=== PATIENT | female | born 1930 | race Caucasian/White ===

== ENCOUNTER 2016-05-16 08:39 | Outpatient (CLI) | payer OTHER ==
[2014-11-30 14:30] VITALS: BP 147/66
== END 2016-05-16 08:49 ==
LOC: LAB 08:39
PROVIDERS: ATTEND Family Medicine
DX: Z51.81 Encounter for therapeutic drug level monitoring (principal); Z79.01 Long term (current) use of anticoagulants; I82.409 Acute embolism and thrombosis of unspecified deep veins of unspecified lower extremity
CPT/HCPCS: 36415; 85610

== ENCOUNTER 2016-06-06 07:54 | Outpatient (CLI) | payer OTHER ==
[2014-11-30 14:30] VITALS: BP 147/66
== END 2016-06-06 07:55 ==
LOC: LAB 07:54
PROVIDERS: ATTEND Family Medicine
DX: Z51.81 Encounter for therapeutic drug level monitoring (principal); Z79.01 Long term (current) use of anticoagulants; I82.409 Acute embolism and thrombosis of unspecified deep veins of unspecified lower extremity
CPT/HCPCS: 36415; 85610

== ENCOUNTER 2016-07-04 08:37 | Outpatient (CLI) | payer OTHER ==
[2014-11-30 14:30] VITALS: BP 147/66
== END 2016-07-04 08:40 ==
LOC: LAB 08:37
PROVIDERS: ATTEND Family Medicine
DX: Z51.81 Encounter for therapeutic drug level monitoring (principal); Z79.01 Long term (current) use of anticoagulants; I82.409 Acute embolism and thrombosis of unspecified deep veins of unspecified lower extremity
CPT/HCPCS: 36415; 85610

== ENCOUNTER 2016-08-01 07:25 | Outpatient (CLI) | payer OTHER ==
[2014-11-30 14:30] VITALS: BP 147/66
== END 2016-08-01 07:26 ==
LOC: LAB 07:25
PROVIDERS: ATTEND Family Medicine
DX: Z51.81 Encounter for therapeutic drug level monitoring (principal); Z79.01 Long term (current) use of anticoagulants; I82.409 Acute embolism and thrombosis of unspecified deep veins of unspecified lower extremity
CPT/HCPCS: 36415; 85610

== ENCOUNTER 2016-08-29 08:07 | Outpatient (CLI) | payer OTHER ==
[2014-11-30 14:30] VITALS: BP 147/66
== END 2016-08-29 08:09 ==
LOC: LAB 08:07
PROVIDERS: ATTEND Family Medicine
DX: I82.409 Acute embolism and thrombosis of unspecified deep veins of unspecified lower extremity (principal)
CPT/HCPCS: 36415; 85610

== ENCOUNTER 2016-10-03 07:14 | Outpatient (CLI) | payer OTHER ==
[2014-11-30 14:30] VITALS: BP 147/66
== END 2016-10-03 07:15 ==
LOC: LAB 07:14
PROVIDERS: ATTEND Family Medicine
DX: I82.409 Acute embolism and thrombosis of unspecified deep veins of unspecified lower extremity (principal)
CPT/HCPCS: 36415; 85610

== ENCOUNTER 2016-11-01 09:43 | Outpatient (CLI) | payer OTHER ==
[2014-11-30 14:30] VITALS: BP 147/66
[2016-11-01 10:39] LABS: eGFR (African) > 60; eGFR (Non-African) > 60
== END 2016-11-01 09:44 ==
LOC: LAB 09:43
PROVIDERS: ATTEND Family Medicine
DX: E78.5 Hyperlipidemia, unspecified (principal); I10 Essential (primary) hypertension; E03.9 Hypothyroidism, unspecified
CPT/HCPCS: 36415; 80053; 80061; 84443

== ENCOUNTER 2016-12-05 08:42 | Outpatient (CLI) | payer OTHER ==
[2014-11-30 14:30] VITALS: BP 147/66
== END 2016-12-05 10:42 ==
LOC: LAB 08:42
PROVIDERS: ATTEND Family Medicine
DX: I82.409 Acute embolism and thrombosis of unspecified deep veins of unspecified lower extremity (principal)
CPT/HCPCS: 36415; 85610

== ENCOUNTER 2017-01-09 08:10 | Outpatient (CLI) | payer OTHER ==
[2014-11-30 14:30] VITALS: BP 147/66
== END 2017-01-09 08:11 ==
LOC: LAB 08:10
PROVIDERS: ATTEND Family Medicine
DX: I26.99 Other pulmonary embolism without acute cor pulmonale (principal)
CPT/HCPCS: 36415; 85610

== ENCOUNTER 2017-02-06 08:21 | Outpatient (CLI) | payer OTHER ==
[2014-11-30 14:30] VITALS: BP 147/66
== END 2017-02-06 08:22 ==
LOC: LAB 08:21
PROVIDERS: ATTEND Family Medicine
DX: I26.99 Other pulmonary embolism without acute cor pulmonale (principal)
CPT/HCPCS: 36415; 85610

== ENCOUNTER 2017-03-06 07:20 | Outpatient (CLI) | payer OTHER ==
[2014-11-30 14:30] VITALS: BP 147/66
== END 2017-03-06 08:24 ==
LOC: LAB 07:20
PROVIDERS: ATTEND Family Medicine
DX: I26.99 Other pulmonary embolism without acute cor pulmonale (principal)
CPT/HCPCS: 36415; 85610

== ENCOUNTER 2017-04-03 07:20 | Outpatient (CLI) | payer OTHER ==
[2014-11-30 14:30] VITALS: BP 147/66
== END 2017-04-03 10:40 ==
LOC: LAB 07:20
PROVIDERS: ATTEND Family Medicine
DX: I26.99 Other pulmonary embolism without acute cor pulmonale (principal)
CPT/HCPCS: 36415; 85610

== ENCOUNTER 2017-05-01 07:24 | Outpatient (CLI) | payer OTHER ==
[2014-11-30 14:30] VITALS: BP 147/66
== END 2017-05-01 07:25 ==
LOC: LAB 07:24
PROVIDERS: ATTEND Family Medicine
DX: I26.99 Other pulmonary embolism without acute cor pulmonale (principal)
CPT/HCPCS: 36415; 85610

== ENCOUNTER 2017-05-28 07:35 | Outpatient (CLI) | payer OTHER ==
[2014-11-30 14:30] VITALS: BP 147/66
== END 2017-05-28 07:36 ==
LOC: LAB 07:35
PROVIDERS: ATTEND Family Medicine
DX: I26.99 Other pulmonary embolism without acute cor pulmonale (principal)
CPT/HCPCS: 36415; 85610

== ENCOUNTER 2017-06-26 07:10 | Outpatient (CLI) | payer OTHER ==
[2014-11-30 14:30] VITALS: BP 147/66
== END 2017-06-26 07:20 ==
LOC: LAB 07:10
PROVIDERS: ATTEND Family Medicine
DX: I26.99 Other pulmonary embolism without acute cor pulmonale (principal)
CPT/HCPCS: 36415; 85610

== ENCOUNTER 2017-07-10 07:20 | Outpatient (CLI) | payer OTHER ==
[2014-11-30 14:30] VITALS: BP 147/66
== END 2017-07-10 07:21 ==
LOC: LAB 07:20
PROVIDERS: ATTEND Family Medicine
DX: I26.99 Other pulmonary embolism without acute cor pulmonale (principal)
CPT/HCPCS: 36415; 85610

== ENCOUNTER 2017-07-24 07:20 | Outpatient (CLI) | payer OTHER ==
[2014-11-30 14:30] VITALS: BP 147/66
== END 2017-07-24 07:22 ==
LOC: LAB 07:20
PROVIDERS: ATTEND Family Medicine
DX: I26.99 Other pulmonary embolism without acute cor pulmonale (principal)
CPT/HCPCS: 36415; 85610

== ENCOUNTER 2017-08-21 07:19 | Outpatient (CLI) | payer OTHER ==
[2014-11-30 14:30] VITALS: BP 147/66
== END 2017-08-21 07:20 ==
LOC: LAB 07:19
PROVIDERS: ATTEND Family Medicine
DX: I26.99 Other pulmonary embolism without acute cor pulmonale (principal)
CPT/HCPCS: 36415; 85610

== ENCOUNTER 2017-09-25 08:00 | Outpatient (CLI) | payer OTHER ==
[2014-11-30 14:30] VITALS: BP 147/66
== END 2017-09-25 08:03 ==
LOC: LAB 08:00
PROVIDERS: ATTEND Family Medicine
DX: I26.99 Other pulmonary embolism without acute cor pulmonale (principal)
CPT/HCPCS: 36415; 85610

== ENCOUNTER → 2017-11-01 | Outpatient (CLI) | payer OTHER ==
[2014-11-30 14:30] VITALS: BP 147/66
[2017-11-01 09:32] LABS: BASOPHILS % 0.6 (0.0-1.5); EOSINOPHILS % 4.5 % (0.0-6.8); MEAN CORPUSCULAR HEMOGLOBIN 30.3 pg (28.0-34.0); MEAN CORPUSCULAR VOLUME 91.8 fl (80.0-100.0); MONOCYTES % 5.9 % (0.0-11.0); NEUTROPHILS # 2.1 # k/uL (1.4-7.7)
[2017-11-01 09:41] LABS: eGFR (African) > 60; eGFR (Non-African) > 60
== END ==
LOC: LAB 08:48
PROVIDERS: ATTEND Family Medicine
DX: I26.99 Other pulmonary embolism without acute cor pulmonale (principal); E78.5 Hyperlipidemia, unspecified; I10 Essential (primary) hypertension; E03.9 Hypothyroidism, unspecified
CPT/HCPCS: 36415; 80053; 80061; 84443; 85025

== ENCOUNTER 2017-12-04 08:01 | Outpatient (CLI) | payer OTHER ==
[2014-11-30 14:30] VITALS: BP 147/66
== END 2017-12-04 13:54 ==
LOC: LAB 08:01
PROVIDERS: ATTEND Family Medicine
DX: I26.99 Other pulmonary embolism without acute cor pulmonale (principal)
CPT/HCPCS: 36415; 85610

== ENCOUNTER 2018-01-08 08:04 | Outpatient (CLI) | payer OTHER ==
[2014-11-30 14:30] VITALS: BP 147/66
== END 2018-01-08 08:05 ==
LOC: LAB 08:04
PROVIDERS: ATTEND Family Medicine
DX: I26.99 Other pulmonary embolism without acute cor pulmonale (principal)
CPT/HCPCS: 36415; 85610

== ENCOUNTER 2018-01-22 08:12 | Outpatient (CLI) | payer OTHER ==
[2014-11-30 14:30] VITALS: BP 147/66
== END 2018-01-22 08:13 ==
LOC: LAB 08:12
PROVIDERS: ATTEND Family Medicine
DX: I26.99 Other pulmonary embolism without acute cor pulmonale (principal)
CPT/HCPCS: 36415; 85610

== ENCOUNTER 2018-04-02 08:04 | Outpatient (CLI) | payer OTHER ==
[2014-11-30 14:30] VITALS: BP 147/66
== END 2018-04-02 08:06 ==
LOC: LAB 08:04
PROVIDERS: ATTEND Family Medicine
DX: I26.99 Other pulmonary embolism without acute cor pulmonale (principal)
CPT/HCPCS: 36415; 85610

== ENCOUNTER 2018-05-07 09:32 | Outpatient (CLI) | payer OTHER ==
[2014-11-30 14:30] VITALS: BP 147/66
== END 2018-05-07 09:33 ==
LOC: LAB 09:32
PROVIDERS: ATTEND Family Medicine
DX: I26.99 Other pulmonary embolism without acute cor pulmonale (principal)
CPT/HCPCS: 36415; 85610

== ENCOUNTER 2018-06-05 08:13 | Outpatient (CLI) | payer OTHER ==
[2014-11-30 14:30] VITALS: BP 147/66
== END 2018-06-05 08:15 ==
LOC: LAB 08:13
PROVIDERS: ATTEND Family Medicine
DX: I26.99 Other pulmonary embolism without acute cor pulmonale (principal)
CPT/HCPCS: 36415; 85610

== ENCOUNTER 2018-06-29 18:31 | Emergency (ER) | payer OTHER ==
--- NOTE | 2018-06-29 18:53 | ED Physician Documentation ---
Nausea/Vomiting/Diarrhea - HISTORIAN Historian: patient, child (Son) - HPI Chief Complaint: Nausea,Vomiting,Diarrhea Additional Information: Patient is an 88-year-old female that presents to the ER with her son with c/o nausea, vomiting, and diarrhea that started around noon today. She states that she has had drive heaves about 6-7 times and diarrhea 2-3 times. She states that she does not think that she has had a fever but she has been getting hot an d then cold. Her mouth feels dry. Onset: hours Duration: waning Timing: gradual onset Context: denies: out of country travel, bad food Severity: mild Further Comments: no - Associated Symptoms Vomiting: frequent (x6-7) Diarrhea: mild (brown liquid) Abdominal Pain: none - ROS CONST: denies: recent illness, fever, chills CVS/RESP: denies: chest pain, shortness of breath, cough GI/: denies: problems urinating EYES/ENT: none MS/SKIN/LYMPH: denies: joint pain, leg swelling NEURO/PSYCH: none - PAST HX Past History: other (hypothyroid) Other History: hypertension, other (PE) Surgeries/Procedures: other (cataracts, rita filter) Immunizations: influenza, pneumovax, UTD Allergies/Adverse Reactions: Allergies Allergy/AdvReac Type Severity Reaction Status Date / Time diclofenac sodium Allergy Verified 06/29/18 19:35 [From Voltaren] - SOCIAL HX Smoking History: non-smoker Alcohol Use: none Drug Use: none - FAMILY HX Family History: none - VITAL SIGNS Vital Signs: Vital Signs Temp Pulse Resp BP Pulse Ox 97.2 F L 90 16 153/59 97 06/29/18 20:30 06/29/18 20:30 06/29/18 20:30 06/29/18 20:30 06/29/18 20:30 - REVIEWED ASSESSMENTS Nursing Assessment Reviewed: Yes Vitals Reviewed: Yes Progress - Results/Orders Results/Orders: Influenza negative - Progress Progress: Patient has had no vomiting or diarrhea- feels better after IVF and Zofran PO ED Results Lab/Radiology - Lab Results Lab Results: See labs CBC, CMP - Orders Orders: ED Orders Category Date Time Status Place IV Lock 1T Care 06/29/18 18:58 Active CBC/PLATELET/DIFF Routine Lab 06/29/18 19:21 Received CMP Routine Lab 06/29/18 19:21 Received URINALYSIS Routine Lab 06/29/18 Ordered 0.9 % Sodium Chloride [Normal Saline] 500 ml Med 06/29/18 18:58 Discontinued IV NOW Ondansetron HCl Rapdis [Zofran Odt] Med 06/29/18 20:09 Discontinued 4 mg .ROUTE .STK-MED ONE Ondansetron HCl Rapdis [Zofran Odt] Med 06/29/18 20:08 Discontinued 4 mg PO NOW ONE Ondansetron HCl Rapdis [Zofran Odt] Med 06/29/18 20:12 Discontinued 8 mg PO TAKE HOME ONE Nausea Physical Exam - EXAM General Appearance: alert, mild distress EENT: eye inspection normal, ENT inspection normal, pharynx normal, [place] Neck: normal inspection, supple Respiratory: no resp distress, breath sounds normal CVS: reg rate & rhythm, heart sounds normal, equal pulses Abdomen: non-tender Skin: warm/dry, pallor Extremities: non-tender, normal range of motion Neuro/Psych: oriented X3, CN's nml as tested, motor nml, sensation nml, mood/affect nml, cognition normal Discharge Clincal Impression: Dehydration, Nausea and vomiting Referrals: Guillaume Chavez MD [Primary Care Provider] - 2 Days Additional Instructions: Take Zofran every 6 hours as needed for nausea/vomiting Increase fluid intake- sips of water frequently Follow up with PCP next week if no improvement Return to ER if you experience dizziness or lightheadedness. Condition: Good Disposition: 01 HOME, SELF-CARE Decision to Admit: NO Decision Time: 20:30
[2018-06-29] MEDS ORDERED: 0.9 % SODIUM CHLORIDE 500 ML IV ONE (18:58)
[2018-06-29] MEDS ORDERED: ONDANSETRON HCL 4 MG TAB.RAPDIS PO ONE ×2 (20:08→20:12)
[2018-06-29] MEDS ORDERED: ONDANSETRON HCL 4 MG TAB.RAPDIS ONE (20:09)
[2018-06-29 21:44] VITALS: BP 153/59
[2018-06-30 08:35] LABS: MEAN CORPUSCULAR HEMOGLOBIN 30.3 pg (28.0-34.0)
[2018-06-30 08:36] LABS: BASOPHILS % 0.5 (0.0-1.5); EOSINOPHILS % 1.4 % (0.0-6.8); MONOCYTES % 4.9 % (0.0-11.0); NEUTROPHILS # 6.7 # k/uL (1.4-7.7)
[2018-06-30 08:37] LABS: eGFR (Non-African) 44
== END 2018-06-29 20:30 | disposition home or self-care (01) ==
LOC: ED 18:31
DX: R11.2 Nausea with vomiting, unspecified (principal); E86.0 Dehydration
CPT/HCPCS: 36415; 80053; 85025; 87400; 96360; 99283; 99284; A9270; J7060; S1016

== ENCOUNTER 2018-07-09 08:03 | Outpatient (CLI) | payer OTHER | END 2018-07-09 08:10 | LOC: LAB 08:03 | PROVIDERS: ATTEND Family Medicine | DX: I26.99 Other pulmonary embolism without acute cor pulmonale (principal) | CPT/HCPCS: 36415; 85610 ==

== ENCOUNTER 2018-07-23 08:05 | Outpatient (CLI) | payer OTHER | END 2018-07-23 08:07 | LOC: LAB 08:05 | PROVIDERS: ATTEND Family Medicine | DX: I26.99 Other pulmonary embolism without acute cor pulmonale (principal) | CPT/HCPCS: 36415; 85610 ==

== ENCOUNTER 2018-09-10 07:53 | Outpatient (CLI) | payer OTHER | END 2018-09-10 07:55 | LOC: LAB 07:53 | PROVIDERS: ATTEND Family Medicine | DX: I26.99 Other pulmonary embolism without acute cor pulmonale (principal) | CPT/HCPCS: 36415; 85610 ==

== ENCOUNTER 2018-10-01 08:07 | Outpatient (CLI) | payer OTHER | END 2018-10-01 08:12 | disposition home or self-care (01) | LOC: LAB 08:07 | PROVIDERS: ATTEND Family Medicine | DX: I26.99 Other pulmonary embolism without acute cor pulmonale (principal) | CPT/HCPCS: 36415; 85610 ==

== ENCOUNTER 2018-12-03 08:10 | Outpatient (CLI) | payer OTHER | END 2018-12-03 08:12 | LOC: LAB 08:10 | PROVIDERS: ATTEND Family Medicine | DX: I26.99 Other pulmonary embolism without acute cor pulmonale (principal); Z79.01 Long term (current) use of anticoagulants | CPT/HCPCS: 36415; 85610 ==

== ENCOUNTER 2018-12-31 07:58 | Outpatient (CLI) | payer OTHER | END 2018-12-31 08:00 | LOC: LAB 07:58 | PROVIDERS: ATTEND Family Medicine | DX: I26.99 Other pulmonary embolism without acute cor pulmonale (principal); Z79.01 Long term (current) use of anticoagulants | CPT/HCPCS: 36415; 85610 ==

== ENCOUNTER 2019-01-07 08:07 | Outpatient (CLI) | payer OTHER | END 2019-01-07 08:10 | LOC: LAB 08:07 | PROVIDERS: ATTEND Family Medicine | DX: Z79.01 Long term (current) use of anticoagulants (principal); Z51.81 Encounter for therapeutic drug level monitoring; I26.99 Other pulmonary embolism without acute cor pulmonale | CPT/HCPCS: 36415; 85610 ==

== ENCOUNTER 2019-02-04 08:17 | Outpatient (CLI) | payer OTHER | END 2019-02-04 08:22 | disposition home or self-care (01) | LOC: LAB 08:17 | PROVIDERS: ATTEND Family Medicine | DX: I26.99 Other pulmonary embolism without acute cor pulmonale (principal); Z79.01 Long term (current) use of anticoagulants; Z51.81 Encounter for therapeutic drug level monitoring | CPT/HCPCS: 36415; 85610 ==

== ENCOUNTER 2019-03-04 08:41 | Outpatient (CLI) | payer OTHER | END 2019-03-04 08:46 | LOC: LAB 08:41 | PROVIDERS: ATTEND Family Medicine | DX: Z51.81 Encounter for therapeutic drug level monitoring (principal); Z79.01 Long term (current) use of anticoagulants; I26.99 Other pulmonary embolism without acute cor pulmonale | CPT/HCPCS: 36415; 85610 ==

== ENCOUNTER 2019-03-11 08:29 | Outpatient (CLI) | payer OTHER | END 2019-03-11 08:30 | LOC: LAB 08:29 | PROVIDERS: ATTEND Family Medicine | DX: Z51.81 Encounter for therapeutic drug level monitoring (principal); Z79.01 Long term (current) use of anticoagulants; I26.99 Other pulmonary embolism without acute cor pulmonale | CPT/HCPCS: 36415; 85610 ==

== ENCOUNTER 2019-04-09 10:12 | Outpatient (CLI) | payer OTHER | END 2019-04-09 10:17 | LOC: LAB 10:12 | PROVIDERS: ATTEND Family Medicine | DX: Z51.81 Encounter for therapeutic drug level monitoring (principal); Z79.01 Long term (current) use of anticoagulants; I26.99 Other pulmonary embolism without acute cor pulmonale | CPT/HCPCS: 36415; 85610 ==

== ENCOUNTER 2019-05-06 08:10 | Outpatient (CLI) | payer MEDICARE | END 2019-05-06 08:15 | LOC: LAB 08:10 | PROVIDERS: ATTEND Family Medicine | DX: Z79.01 Long term (current) use of anticoagulants (principal); I26.99 Other pulmonary embolism without acute cor pulmonale | CPT/HCPCS: 36415; 85610 ==